=== PATIENT | male | born 1995 | race Caucasian/White ===

== ENCOUNTER 2017-06-12 02:31 | Emergency (ER) | payer OTHER ==
[2017-06-12] MEDS ORDERED: ALBUTEROL SULFATE 0.083% NEB 2.5 MG/3 ML AMPUL NEB ONE (03:25)
[2017-06-12] MEDS ORDERED: ACETAMINOPHEN 325 MG TABLET PO ONE (03:25)
--- NOTE | 2017-06-12 03:25 | ER Document Report ---
ED Respiratory Problem - General Chief Complaint: Cold Symptoms Stated Complaint: COUGHING UP BLOOD Time Seen by Provider: 06/12/17 02:51 Notes: Patient is a 22-year-old male presents emergency department with a chief complaint of productive cough with sore throat for the past 2 days. Patient states that he does have a history of bronchitis during the winter season. States he is not a smoker denies any history of asthma. States in the past he has taken cough medicine at home and usually sleeps it off without any difficulty. He denies any fevers, chills. Denies any shortness of breath on exertion, chest pain. TRAVEL OUTSIDE OF THE [place] IN LAST 30 DAYS: No - Related Data Allergies/Adverse Reactions: No Known Allergies Allergy (Verified 06/12/17 02:33) Home Medications: Current Home Medications No Home Medications 06/12/17 [History] Past Medical History - Social History Smoking Status: Never Smoker Family History: Reviewed & Not Pertinent Review of Systems - Review of Systems Constitutional: No symptoms reported EENT: No symptoms reported Cardiovascular: No symptoms reported Respiratory: See HPI Gastrointestinal: No symptoms reported -: Yes All other systems reviewed and negative Physical Exam - Vital signs Vitals: Temp Pulse Resp BP Pulse Ox 99.2 F 100 18 129/68 H 97 06/12/17 02:36 06/12/17 02:36 06/12/17 02:36 06/12/17 02:36 06/12/17 02:36 - Notes Notes: PHYSICAL EXAM GENERAL: Alert, interacts well. HEAD: Normocephalic, atraumatic. EYES: Pupils equal, round, and reactive to light. Extraocular movements intact. ENT: Oral mucosa moist, tongue midline. NECK: Full range of motion. Supple. Trachea midline. LUNGS: Clear to auscultation bilaterally, no wheezes, rales, or rhonchi. No respiratory distress. HEART: Regular rate and rhythm. No murmurs, gallops, or rubs. ABDOMEN: Soft, nondistended, nontender. No guarding, rebound, or rigidity.. Bowel sounds present in all 4 quadrants. EXTREMITIES: Moves all 4 extremities spontaneously. No edema, radial and dorsalis pedis pulses 2/4 bilaterally. No cyanosis. NEUROLOGICAL: Alert and oriented x4. Normal speech. PSYCH: Normal affect, normal mood. SKIN: Warm, dry, normal turgor. No rashes or lesions noted. Course - Re-evaluation Re-evalutation: 06/12/17 04:27 Patient is a 22-year-old male who is hemodynamically stable, no acute distress afebrile. No evidence of pneumonia or acute infiltrate noted on chest x-ray. Patient states that he feels about the same after breathing treatment. At this time he is declining any prescriptions to go home with. Educated him on the benefits of using Mucinex to help with his productive cough. Otherwise discussed signs and symptoms indicating return to the emergency department. Patient expresses understanding is stable for discharge home. - Vital Signs Vital signs: Temp Pulse Resp BP Pulse Ox 98.6 F 86 14 122/64 97 06/12/17 04:41 06/12/17 04:41 06/12/17 04:41 06/12/17 04:41 06/12/17 04:41 - Diagnostic Test Radiology reviewed: Image reviewed, Reports reviewed Discharge - Discharge Clinical Impression: Cough Condition: Good Disposition: HOME, SELF-CARE Instructions: Cough Suppressant & Expectorant Medications Additional Instructions: You can utilize Mucinex [id number] which will help allow the mucus to come up easily. Otherwise you can take [id number] cough medicine. Otherwise there is no evidence of pneumonia or bronchitis on your exam today. Please return to the emergency department with any worsening symptoms with associated shortness of breath, fever, difficulty breathing or chest pain. Forms: Return to Work
--- NOTE | 2017-06-12 04:00 | RADIOLOGY REPORT (SQ) ---
EXAM DESCRIPTION: CHEST PA/LAT CLINICAL HISTORY: 22 years, Male, cough COMPARISON: None. LIMITATIONS: None. FINDINGS: Adequate lung volumes, clear parenchyma, normal cardiac silhouette, and intact bony thorax. IMPRESSION: Normal chest radiographs. 2011 [employer]- All Rights Reserved
[2017-06-12] MEDS ORDERED: GUAIFENESIN 600 MG TABLET.SA PO ONE (04:31)
[2017-06-12 04:47] VITALS: BP 122/64
== END 2017-06-12 04:46 | disposition home or self-care (01) ==
LOC: ER 02:31
DX: R05 Cough (principal)
CPT/HCPCS: 71020; 94640; 99283